=== PATIENT | male | born 2000 | race Caucasian/White ===

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

== ENCOUNTER 2019-07-12 17:17 | Emergency (ER) | payer OTHER ==
[2019-07-12] MEDS ORDERED: Tetan/Diph/Pertus SYR(Tdap)* 0.5 ML SYR(BOOSTRIX) use SYR contains LATEX IM ONE (19:14)
--- NOTE | 2019-07-12 19:14 | ED ---
Lower Extremity - HPI Summary HPI Summary: Patient complains of laceration to left knee after falling off sled while sledding and scratching it on rock. Tetanus status up-to-date. Denies any other pain, injury or symptoms. Patient ambulatory. - History of Current Complaint Chief Complaint: EDLacSutureRecheck Stated Complaint: LT KNEE INJURY PER PT Time Seen by Provider: 07/12/19 19:05 Hx Obtained From: Patient Mechanism Of Injury: Blunt Trauma Onset of Pain: Immediate Onset/Duration: Hours Severity Initially: Moderate Severity Currently: Moderate Pain Intensity: 4 Pain Scale Used: 0-10 Numeric Timing: Constant Location: Is Discrete @ Character Of Pain: Throbbing Associated Signs And Symptoms: Positive: Negative Aggravating Factor(s): Nothing - Allergies/Home Medications Allergies/Adverse Reactions: Allergies Allergy/AdvReac Type Severity Reaction Status Date / Time No Known Allergies Allergy Verified 07/12/19 17:24 PMH/Surg Hx/FS Hx/Imm Hx Endocrine/Hematology History: Denies: Hx Anticoagulant Therapy Cardiovascular History: Denies: Hx Hypertension History: Denies: Hx Dialysis Sensory History: Denies: Hx Eye Prosthesis Opthamlomology History: Denies: Hx Legally Blind EENT History: Denies: Hx Deafness Neurological History: Denies: Hx Dementia - Immunization History Date of Tetanus Vaccine: 2013 Infectious Disease History: No Infectious Disease History: Denies: Traveled Outside the [place] in Last 30 Days - Family History Known Family History: Negative: Diabetes - Social History Alcohol Use: None Substance Use Type: Reports: None Smoking Status (MU): Never Smoked Tobacco Review of Systems Constitutional: Negative Eyes: Negative ENT: Negative Cardiovascular: Negative Respiratory: Negative Gastrointestinal: Negative Genitourinary: Negative Musculoskeletal: Negative Skin: Other Neurological: Negative Psychological: Normal All Other Systems Reviewed And Are Negative: Yes Physical Exam Triage Information Reviewed: Yes Vital Signs On Initial Exam: Initial Vitals Temp Pulse Resp BP Pulse Ox 98.1 F 103 18 143/88 97 07/12/19 17:21 07/12/19 17:21 07/12/19 17:21 07/12/19 17:21 07/12/19 17:21 Vital Signs Reviewed: Yes Appearance: Positive: Well-Appearing Skin: Positive: Warm Head/Face: Positive: Normal Head/Face Inspection Eyes: Positive: Normal Dental: Negative: Dental Fracture @, Bleeding Neck: Positive: Supple Respiratory/Lung Sounds: Positive: Clear to Auscultation Cardiovascular: Positive: Normal Abdomen Description: Positive: Nontender Musculoskeletal: Positive: Normal Neurological: Positive: Normal Psychiatric: Positive: Normal AVPU Assessment: Alert - Pari Coma Scale Best Eye Response: 4 - Spontaneous Best Motor Response: 6 - Obeys Commands Best Verbal Response: 5 - Oriented Coma Scale Total: 15 Procedures - Sedation Patient Received Moderate/Deep Sedation with Procedure: No - Laceration/Wound Repair 1 Location: lower extremity Description: Linear Anesthesia: Local, 1.0% Length, Depth and Shape: 5 cm x 1.5 cm laceration just distal to left knee. Betadine Prep?: No Irrigated w/ Saline (ccs): 2,000 Laceration/Wound Explored: clean Debridement: minimal Number of Sutures: 14 - 4.0 ethilon Layer Closure?: No Sterile Dressing Applied?: No Diagnostics - Vital Signs Vital Signs Temp Pulse Resp BP Pulse Ox 07/12/19 17:21 98.1 F 103 18 143/88 97 - Laboratory Lab Statement: Any lab studies that have been ordered have been reviewed, and results considered in the medical decision making process. Lower Extremity Course/Dx - Course Course Of Treatment: Patient complains of laceration to left knee after falling off sled while sledding and scratching it on rock. Tetanus status up-to-date. Denies any other pain, injury or symptoms. Patient ambulatory. Vital signs within normal limits. Wound cleaned and sutured. X-ray negative. - Diagnoses Provider Diagnoses: Left knee injury, Laceration Discharge ED - Sign-Out/Discharge Documenting (check all that apply): Patient Departure - Discharge Plan Condition: Stable Disposition: HOME Prescriptions: Cephalexin CAP* [Keflex CAP*] 500 mg PO QID 5 Days #20 cap Patient Education Materials: Care For Your Stitches (ED), Laceration (ED), Knee Pain (ED) Referrals: No Primary Care Phys,NOPCP [Primary Care Provider] - Jese Marie MD [Medical Doctor] - Additional Instructions: Sutures out in 10 days. Avoid extreme flexion of left knee. Wash wound with warm running water and soap and then cover with antibiotic ointment and dressing. Do not submerge underwater for 5 days. Alternate ibuprofen 600 mg of Tylenol 650 mg every 3 hours if needed for pain. Return to the ED for any new or worsening symptoms. - Billing Disposition and Condition Condition: STABLE Disposition: Home
[2019-07-12] MEDS ORDERED: Lidocaine 1% MPF ** 5 ML VIAL INJ ONE (19:42)
[2019-07-12] MEDS ORDERED: Bacitracin OINTMENT* 0.5% 0.5 oz TUBE TOPICAL ONE (21:26)
[2019-07-12] MEDS ORDERED: Cephalexin CAP* 500 MG PO ONE (21:27)
[2019-07-12 22:28] VITALS: BP 128/78
== END 2019-07-12 21:51 | disposition home or self-care (01) ==
LOC: ED 17:17
DX: S81.012A Laceration without foreign body, left knee, initial encounter (principal); S89.92XA Unspecified injury of left lower leg, initial encounter; W19.XXXA Unspecified fall, initial encounter; Y93.23 Activity, snow (alpine) (downhill) skiing, snowboarding, sledding, tobogganing and snow tubing; Y92.9 Unspecified place or not applicable
CPT/HCPCS: 12002; 99282; A9270-GY